=== PATIENT | female | born 1955 | race African-American/Black ===

== ENCOUNTER 2016-03-16 18:17 | Observation (INO) | payer OTHER ==
[2016-03-16] MEDS ORDERED: ASPIRIN CHEW 81 MG TABLET PO STA (19:14)
[2016-03-16] MEDS ORDERED: ASPIRIN CHEW 81 MG TABLET ONE (19:22)
[2016-03-16] MEDS ORDERED: ACETAMINOPHEN 325 MG TABLET PO PRN (21:53)
[2016-03-16] MEDS ORDERED: ONDANSETRON 4 MG/2 ML VIAL IVP PRN (21:53)
[2016-03-16] MEDS ORDERED: SODIUM CHLORIDE FLUSH 0.9% 10 ML SYRINGE IVP PRN (21:53)
[2016-03-16] MEDS ORDERED: MORPHINE 2 MG/ML SYRINGE IVP PRN (21:53)
[2016-03-16] MEDS ORDERED: TEMAZEPAM 15 MG CAPSULE PO PRN (21:53)
[2016-03-16] MEDS ORDERED: SILDENAFIL CITRATE 50 MG PO SCH (22:00)
[2016-03-16] MEDS ORDERED: POTASSIUM CHLORIDE 20 MEQ TABLET PO SCH (22:35)
[2016-03-16] MEDS ORDERED: DEXTROSE GEL 37.5 GM TUBE PO PRN (22:41)
[2016-03-16] MEDS ORDERED: DEXTROSE 50% ABBOJECT 25 GM/50 ML SYRINGE IVP PRN (22:41)
[2016-03-16] MEDS ORDERED: GLUCAGON 1 MG/ML VIAL SUBQ PRN (22:41)
[2016-03-16] MEDS ORDERED: DEXTROSE 5% 1,000 ML IV PRN (22:41)
[2016-03-17] MEDS: SODIUM CHLORIDE FLUSH 0.9% 10 ML SYRINGE IVP SCH ×2 (00:07→06:15)
[2016-03-17] MEDS ORDERED: INSULIN ASPART 300 UNIT/3 ML PEN SUBQ SCH (08:00)
[2016-03-17] MEDS ORDERED: SILDENAFIL CITRATE 100 MG PO SCH (08:00)
[2016-03-17] MEDS ORDERED: POLYETHYLENE GLYCOL 3350 17 GM PACKET PO SCH (09:00)
[2016-03-17] MEDS ORDERED: ENOXAPARIN 40 MG/0.4 ML SYRINGE SUBQ SCH (09:00)
== END 2016-03-17 12:15 | disposition home or self-care (01) ==
DX: R07.89 Other chest pain (principal); I27.2 Other secondary pulmonary hypertension; I10 Essential (primary) hypertension; E11.9 Type 2 diabetes mellitus without complications; G47.33 Obstructive sleep apnea (adult) (pediatric); E78.5 Hyperlipidemia, unspecified; Z99.81 Dependence on supplemental oxygen; Z87.891 Personal history of nicotine dependence; Z79.82 Long term (current) use of aspirin
CPT/HCPCS: 36415; 71020; 80048; 80053; 80061; 81001; 82550; 82553; 83036; 83690; 83721; 83880; 84484; 85025; 85379; 85610; 85730; 93005; 93010; 93306; 99284; A9270; G0378